=== PATIENT | female | born 1995 | race African-American/Black ===

== ENCOUNTER 2018-10-02 18:41 | Emergency (ER) | payer SELFPAY ==
--- NOTE | 2018-10-02 18:54 | PDOC ---
Rapid Medical Evaluation Time Seen by Provider: 10/02/18 18:51 Medical Evaluation: 10/02/18 18:52 pt c/o: vomited x 7 since last night, able to eat and drink, no abd pain Exam: vss Plan: ua , upreg, Discharge Disposition - Diagnosis Vomiting - Referrals - Patient Instructions - Post Discharge Activity
[2018-10-02 18:55] VITALS: BP 120/59; PULSE 69; TEMP 98.1; BMI 19.1
[2018-10-02] MEDS ORDERED: ONDANSETRON *ODT* 4 MG TABLET SL ONE (19:18)
[2018-10-02] MEDS ORDERED: ONDANSETRON *ODT* 4 MG TABLET ONE (19:28)
[2018-10-02 19:42] LABS: URINE APPEARANCE CLEAR; URINE BILIRUBIN NEGATIVE (<2.0 mg/dL); URINE COLOR YELLOW; URINE GLUCOSE (UA) NEGATIVE (NEGATIVE); URINE KETONE TRACE (NEGATIVE); URINE LEUK ESTERASE NEGATIVE (NEGATIVE); URINE NITRITE NEGATIVE (NEGATIVE); URINE PROTEIN NEGATIVE (NEGATIVE); URINE UROBILINOGEN NEGATIVE mg/dL (0.2-1.0)
[2018-10-02 19:43] LABS: HCG,QUALITATIVE URINE Negative
--- NOTE | 2018-10-02 19:58 | PDOC ---
History of Present Illness - General Chief Complaint: Nausea/Vomiting Stated Complaint: NAUSEA/VOMITING Time Seen by Provider: 10/02/18 18:51 History Source: Patient Exam Limitations: No Limitations Past History - Past Medical History Allergies/Adverse Reactions: Allergies Allergy/AdvReac Type Severity Reaction Status Date / Time amoxicillin Allergy Verified 10/02/18 18:53 Home Medications: Ambulatory Orders Ondansetron [Zofran Odt -] 4 mg SL BID PRN #14 od.tablet 10/02/18 COPD: No - Suicide/Smoking/Psychosocial Hx Smoking History: Never smoked *Physical Exam - Vital Signs Last Vital Signs Temp Pulse Resp BP Pulse Ox 98.1 F 69 18 120/59 L 96 10/02/18 18:53 10/02/18 18:53 10/02/18 18:53 10/02/18 18:53 10/02/18 18:53 - Physical Exam General Appearance: No: Apparent Distress Respiratory/Chest: positive: Lungs Clear, Normal Breath Sounds. negative: Respiratory Distress Cardiovascular: positive: Regular Rhythm, Regular Rate, S1, S2. negative: Murmur Gastrointestinal/Abdominal: positive: Normal Bowel Sounds, Soft. negative: Tender, Distended, Guarding, Rebound, Tenderness, Mass Musculoskeletal: negative: CVA Tenderness Integumentary: positive: Normal Color Neurologic: positive: Alert Moderate Sedation - Procedure Monitoring Vital Signs: Procedure Monitoring Vital Signs Temperature 98.1 F 10/02/18 18:53 Pulse Rate 69 10/02/18 18:53 Respiratory Rate 18 10/02/18 18:53 Blood Pressure 120/59 L 10/02/18 18:53 O2 Sat by Pulse Oximetry (%) 96 10/02/18 18:53 ED Treatment Course - ADDITIONAL ORDERS Additional order review: Laboratory Results 10/02/18 19:19 Urine Color Yellow Urine Appearance Clear Urine pH 6.0 Ur Specific [place] 1.023 Urine Protein Negative Urine Glucose (UA) Negative Urine Ketones Trace H Urine Blood Negative Urine Nitrite Negative Urine Bilirubin Negative Urine Urobilinogen Negative Ur Leukocyte Esterase Negative Urine HCG, Qual Negative - Medications Given in the ED: ED Medications Discontinued Medications Generic Name Dose Route Start Last Admin Trade Name Freq PRN Reason Stop Dose Admin Ondansetron HCl 4 mg 10/02/18 19:18 10/02/18 19:29 Zofran Odt - SL 12/27/18 19:19 4 mg ONCE ONE Administration Medical Decision Making - Medical Decision Making 23 y/o F with no sig pmh presents with NBNB emesis from last night (states has had around 7 episodes, last episode was around 2 PM today) along with minimal lower abdominal discomfort. Patient had a salad a few hours ago, which she tolerated. Denies heavy alcohol use, fever, sob, cp, diarrhea, urinary complaints, unusual vaginal discharge. LNMP 09/07/18. Denies any abdominal surgeries PE unremarkable; patient appears comfortable UA and UCG negative Patient given PO Zofran and passed PO challenge Could possibly be viral syndrome Stable for d/c 10/02/18 19:53 *DC/Admit/Observation/Transfer Diagnosis at time of Disposition: Vomiting Qualifiers: Vomiting type: unspecified Vomiting Intractability: non-intractable Nausea presence: with nausea Qualified Code(s): R11.2 - Nausea with vomiting, unspecified - Discharge Dispostion Disposition: HOME Condition at time of disposition: Improved Decision to Admit order: No - Prescriptions Prescriptions: Ondansetron [Zofran Odt -] 4 mg SL BID PRN #14 od.tablet PRN Reason: Nausea/vomiting - Referrals - Patient Instructions Printed Discharge Instructions: DI for Vomiting -- Adult Additional Instructions: Thank you for choosing [facility]. It was a pleasure taking care of you. Drink plenty of fluid to stay hydrated Take Zofran as needed for nausea/vomiting. Follow-up with your PCP in 3 days. Return to the Emergency Department if your symptoms worsen or persist, you have fever, shortness of breath, chest pain, severe abdominal pain, vomiting or other concerning symptoms. - Post Discharge Activity
== END 2018-10-02 20:03 | disposition home or self-care (01) ==
LOC: JERFT 18:41
DX: B34.9 Viral infection, unspecified (principal)
CPT/HCPCS: 81003; 84703; 99281-25; Q0162